=== PATIENT | female | born 1985 | race Caucasian/White ===

== ENCOUNTER 2021-02-07 01:46 | Emergency (ER) | payer SELFPAY ==
[~2021-02-07] VITALS: Ht 177.8 cm; Wt 90.3 kg
--- NOTE | 2021-02-07 02:03 | NUR ---
pt bib ra for etoh. pt opens eyes to strong verbal and tactile.
--- NOTE | 2021-02-07 04:14 | NUR ---
pt had a blood draw, notified by bobbin inspector that patient is awake asking for her cell phone. spoke with pt she says she is in the hospital and that she had a little bit to drink. Informed Dr. Ace pt is more awake.
[2021-02-07 04:18] LABS: HEMATOCRIT 39.8 % (31.2-41.9); MEAN CORPUSCULAR HEMOGLOBIN 30.3 uug (24.7-32.8); MEAN CORPUSCULAR VOLUME 89.7 fL (75.5-95.3); PLATELET COUNT (AUTO) 242 K/uL (179-408)
[2021-02-07 04:26] LABS: CREATININE 0.8 mg/dL (0.6-1.3); POTASSIUM 3.7 mmol/L (3.5-5.1)
[2021-02-07] MEDS ORDERED: IV NS 1000 ML 1,000 ML IV ONE (04:30)
[2021-02-07 04:36] LABS: BILIRUBIN,DIRECT 0.1 mg/dL (0.0-0.2); BILIRUBIN,TOTAL 0.3 mg/dL (0.2-1.0); TOTAL PROTEIN, SERUM 8.5 g/dL (6.4-8.2)
--- NOTE | 2021-02-07 05:27 | NUR ---
pt got up oob removed iv states she wants to go home. wants to call a taxi. Dr. Ace made aware he is at bedside.
--- NOTE | 2021-02-07 06:01 | NUR ---
Patient discharged to home in stable condition. Written and verbal after care instructions given. Patient verbalizes understanding of instructions. Stressed follow up or return to ER for worsening s/s. pt ambulate without assist, denies dizziness, cp or sob. pt friend is here to drive patient home.
[2021-02-07 06:09] VITALS: BP 115/72
== END 2021-02-07 06:10 | disposition home or self-care (01) ==
LOC: ER 01:51
DX: F10.129 Alcohol abuse with intoxication, unspecified (principal); Y90.6 Blood alcohol level of 120-199 mg/100 ml; R00.0 Tachycardia, unspecified
CPT/HCPCS: 36415; 85025; 93005; A4663; G0480; J7030